=== PATIENT | female | born 1975 | race Caucasian/White ===

== ENCOUNTER 2017-07-04 08:08 | Outpatient (CLI) | payer OTHER ==
[2017-07-04] MEDS ORDERED: Iopamidol 370 76% 100 ML VIAL ONE (14:26)
== END 2017-07-04 08:09 | disposition home or self-care (01) ==
LOC: BICCT 08:08
PROVIDERS: ATTEND Family Medicine
DX: K57.53 Diverticulitis of both small and large intestine without perforation or abscess with bleeding (principal); N20.0 Calculus of kidney; Z98.890 Other specified postprocedural states
CPT/HCPCS: 74177

== ENCOUNTER 2018-06-17 13:32 | Outpatient (CLI) | payer OTHER ==
--- NOTE | 2018-06-17 14:36 | CT ---
CT PARANASAL SINUSES WITHOUT CONTRAST: INDICATIONS: Chronic sinusitis. FINDINGS: The frontal sinus is clear. There is minimal mucosal thickening of the ethmoid sinus. The maxillary sinuses and sphenoid sinus are patent. No evidence of otomastoid effusion visualized. IMPRESSION: No significant mucosal inflammatory disease of the paranasal sinuses. POS: [facility]
== END 2018-06-17 13:33 | disposition home or self-care (01) ==
LOC: BICCT 13:32
PROVIDERS: ATTEND Family Medicine
DX: J32.8 Other chronic sinusitis (principal)

== ENCOUNTER 2023-01-20 12:22 | Outpatient (CLI) | payer BC | END 2023-01-20 12:23 | disposition home or self-care (01) | LOC: BICMAMMO 12:22 | PROVIDERS: ATTEND Family Medicine | DX: Z12.31 Encounter for screening mammogram for malignant neoplasm of breast (principal) | CPT/HCPCS: 77063; 77067 ==